=== PATIENT | male | born 2005 | race Two or more races ===

== ENCOUNTER 2024-10-11 16:53 | Emergency (ER) | payer BC ==
[~2024-10-11] VITALS: Ht 188 cm; Wt 96.2 kg
[2024-10-11] MEDS ORDERED: LIDOCAINE 2%-EPI 1:100,000 20 ML VIAL ONE (17:51)
[2024-10-11] MEDS: LIDOCAINE 2%-EPI 1:100,000 20 ML VIAL IJ ONE (18:18)
[2024-10-11] MEDS ORDERED: AMOX-430 PO (18:39)
[2024-10-11 19:32] VITALS: BP 141/75; O2SAT 98
== END 2024-10-11 19:32 | disposition home or self-care (01) ==
LOC: ER 16:53
DX: L05.01 Pilonidal cyst with abscess (principal)
CPT/HCPCS: A4606; A4663